=== PATIENT | female | born 1975 | race Caucasian/White ===

== ENCOUNTER 2022-09-26 13:28 | Emergency (ER) | payer SELFPAY ==
[~2022-09-26] VITALS: Ht 154.9 cm; Wt 68.0 kg
[2022-09-26 13:28] VITALS: BP 123/83
[~2022-09-26 13:28] MED LIST: ALPR2TAB2 PO; CIPR500T86 PO; DULO60CA8 PO; FENT1PAT75 TP; HYDR-3097 PO; HYDR-3101 PO; HYDR-3105 PO; METH-3 PO; PANT20TA2 PO; PRAZ2CAP2 PO; TRAM50TA PO; TRAZ-168 PO; ZOLP5TAB PO
[2022-09-26 13:34] VITALS: BP 123/83
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
--- NOTE | 2022-09-26 13:54 | NUR ---
[place] [facility] NOTIFIED [place] [facility] OF THE NEED FOR ANIMAL CONTROL.
--- NOTE | 2022-09-26 14:04 | NUR ---
ANIMAL CONTROL SPOKE TO ANIMAL CONTROL
[2022-09-26] MEDS ORDERED: DECADRON ONE (14:35)
--- NOTE | 2022-09-26 14:35 | ER.PDOC ---
General Chief Complaint: Sore Throat Stated Complaint: SORE THROAT, DOG BITE ON RT HAND Time seen by MD: 13:40 Source: patient Exam Limitations: no limitations History of Present Illness Initial Comments 47-year-old female with couple days of cold symptoms. Sore throat, congestion, body ache. No cough. No nausea vomiting diarrhea. No chest pain or shortness of breath Allergies: Coded Allergies: ibuprofen (Unverified Allergy, Severe, Anaphylaxis Shock, 06/10/13) ketorolac tromethamine (Unverified Allergy, Intermediate, Nausea, 06/10/13) morphine (Unverified Allergy, Intermediate, Hives, ITCHING, 03/11/16) Home Meds Active Scripts Tramadol Hcl (TRAMADOL HCL) 50 Mg Tablet, 50 MG PO Q6 PRN for PAIN, #20 TABLET Prov:VITALY GARCIA MD 03/28/16 Ciprofloxacin Hcl (CIPRO) 500 Mg Tablet, 500 MG PO BID, #10 Prov:VITALY GARCIA MD 03/28/16 Reported Medications Prazosin Hcl (PRAZOSIN HCL) 2 Mg Capsule, 1 CAP PO HS, #30 CAP 2 Refills 03/11/16 Tramadol Hcl (TRAMADOL HCL) 50 Mg Tablet, 1 TAB PO Q4 PRN for PAIN, #90 TAB 03/11/16 Methocarbamol (ROBAXIN) 500 Mg Tablet, 1 TAB PO QID PRN for PAIN, #60 TAB 03/11/16 Pantoprazole Sodium (PROTONIX) 20 Mg Tablet.dr, 60 MG PO DAILY 03/30/15 Past Medical History Medical History: no pertinent history Surgical History: back, gastric bypass, other Social History Alcohol Use: occassionally Drug Use: none All Other Systems: Reviewed and Negative Physical Exam General Appearance: alert, no distress Head/Neck: head nml inspection Eyes: eyes nml inspection Mouth: lips, gums nml Throat: pharynx nml Ears/Nose: nml inspection Respiratory: no resp. distress CVS: reg. rate & rhythm Extremities: ROM nml Skin Exam: Normal Color NEURO/PSYCH: oriented X3 Results/Orders Results/Orders Orders - LENNOX FOSTER MD Dexamethasone (Decadron) (09/26/22 14:27) Vital Signs Date Time Temp Pulse Resp B/P (MAP) Pulse Ox O2 Delivery O2 Flow Rate FiO2 09/26/22 13:34 99.6 105 18 123/83 (96) 95 Room Air* 0 21 09/26/22 13:28 99.6 105 18 95 09/26/22 13:28 99.6 105 18 09/26/22 13:28 99.6 105 18 123/83 (96) 95 Room Air* 0 21 Laboratory Tests Test 09/26/22 00:00 Influenza Type A Antigen NEGATIVE (NEG) Influenza Type B Antigen NEGATIVE (NEG) SARS-CoV-2 Antigen (Rapid) NEGATIVE (NEGATIVE) Group A Streptococcus Screen NEGATIVE (NEGATIVE) ER DEPART Departure Time of Disposition: 14:34 Disposition: 01 HOME / SELF CARE / HOMELESS Impression: Primary Impression: Viral syndrome Condition: Stable Referrals: PCP,UNKNOWN (PCP) PRIMARY CARE PROVIDER Duration or Time Spent with Pa: LENNOX Amin MD Sep 26, 2022 14:35
[2022-09-26] MEDS: DECADRON PO STA (14:36)
[2022-09-26 14:41] VITALS: BP 134/87
== END 2022-09-26 14:45 | disposition home or self-care (01) ==
LOC: ER 13:28
DX: B34.9 Viral infection, unspecified (principal); Z20.822 Contact with and (suspected) exposure to COVID-19; F10.20 Alcohol dependence, uncomplicated; Z88.5 Allergy status to narcotic agent; Z88.6 Allergy status to analgesic agent; Z98.84 Bariatric surgery status
CPT/HCPCS: 99283; 87426; 87070; 87880; 87804 ×2; J8540